=== PATIENT | male | born 1965 | race Caucasian/White ===

== ENCOUNTER 2017-10-01 14:40 | Outpatient (CLI) | payer OTHER ==
[~2017-10-01] VITALS: Ht 171.4 cm; Wt 99.1 kg
[2017-10-01] MEDS ORDERED: METF-480 PO (15:01)
[2017-10-01] MEDS ORDERED: NOVMIX SC (15:01)
[2017-10-01] MEDS ORDERED: METO-448 PO (15:01)
[2017-10-01] MEDS ORDERED: AMLO5TAB4 PO (15:01)
[2017-10-01 15:02] VITALS: Ht 171.4 cm; Wt 99.1 kg
[2017-10-01 15:03] VITALS: BP 127/85; PULSE 103; RESP 18
--- NOTE | 2017-10-01 15:22 | PN ---
Date/Time of Note Date/Time of Note DATE: 10/01/17 TIME: 15:16 Outpatient Progress Note Chief Complaint Right-sided weakness/diabetes/hypertension/neuropathy HPI Right-sided weakness/patient was recently hospitalized with right-sided weakness , patient upper and lower extremity weakness, patient also has tingling and numbness, Patient slightly unsteady on walking, patient has a cane, patient left at home, Diabetes/no polydipsia polyuria hypoglycemia, blood sugars still slightly elevated, Hypertension/no headache or dizziness, no blood in the urine, no impaired vision , Review of Systems Const: No Fever, no chills, no Wt. loss, no Fatigue, normal appetite, no diaphoresis. Eyes: No pain, no discharge, no redness, no visual change, no foreign body. ENT: No pain, no bleeding, no congestion, no sore throat, no dysphagia, no discharge or rhinitis. Lymph: No adenopathy, no tender nodes, no lymphedema. Resp: No SOB, no cough, no sputum, no wheezing, no chest pain. CV: No chest pain, no palpitaions, no BARRY, no PND, no edema. GI: Normal appetite, no pain, no nausea, no vomiting, no diarrhea, no blood, no constipation. : No frequency, no urgency, no dysuria, no hematuria, no flank pain, no discharge, no bleeding. Musc: Right-sided weakness, and numbness, no back pain, no neck pain, no knee pain, no restricted ROM. Skin: No rash, no skin lesions, no erythema, no laceration, no bruising, no pruritus. Neuro: No DUPREE, no dizziness, no syncope, no seizure, no focal-weakness. Endo: No polyuria, no polydypsia, no dry-skin, no temp-intolerance. Psych: No hallucinations, no depression, no anxiety, no suicidal ideation. Ext: No edema, no pain, no ulcer, no weakness. Right-sided weakness, and numbness, Physical Exam Vital Signs Date Time Temp Pulse Resp B/P Pulse Ox O2 Delivery O2 Flow Rate FiO2 10/01/17 15:03 98.5 103 18 127/85 97 Room Air General Appearance: A 52 year-old male who appears well-developed, well- nourished, in no acute distress. HEENT: Head normocephalic, atraumatic. Pupils equal, round, reactive to light and accommodate. Sclerae are no jaundice. Nasal turbinates pink without erythema or nasal discharge. Mucous membranes pink and moist without lesions. Oropharynx clear without any exudate or discharge. NECK: Supple. Trachea midline, No thyromegaly, No cervical lymphadenopathy, No mass, No carotid bruits, No JVD, Carotid pulses 2+ bilaterally. PULMONARY: Clear to auscultaion bilaterally, No retractions, Chest expansion symmetric bilaterally, no rales, no ronchi, no dulness on percussion. CARDIAC: Normal SI and S2, Regular rate and rythm, no murmur, gallop, or rub. GASTROINTESTINAL: Abdomen is soft, non-tender, Non Rigid, No distention, Positive bowel sounds x4 quadrants, Liver normal. SKIN: Warm, dry, no rash, no bruise, no echmosis. EXTREMITIES: Bilateral lower extremities no edema, right upper and lower extremity weakness, and numbness, no phlabitus, pulse palpable, no contracture. MUSCULOSKELETAL: Spine Normal, Non-tender, Normal range of motion, No swelling, no deformity, no clubbing, or cyanosis, the patient has no edema to bilateral lower extremities, dorsalis pedis pulses palpable bilaterally. NEUROLOGIC: The patient is awake, alert, oriented, responding to yes/no questions appropriately, moving all extremities, cranial nerve intact, normal strenght, normal power, normal coordination on left side, right side upper extremity 4 out of 5 strength and 3 out of 5 lower extremity,, slightly unsteady gait. Allergies Coded Allergies: No Known Drug Allergies (Verified Allergy, Unknown, 10/01/17) PMH TIA/diabetes/hypertension/neuropathy/rule out CVA Social Hx Former smoker, occasional marijuana, no alcohol, Family Hx Noncontributory Assessment/Plan Impression Right-sided weakness/rule out CVA Diabetes Hypertension Neuropathy Plan Patient education done about his condition and diseases, patient educated to use his cane and fall precaution, Patient encouraged to follow the primary care physician, Patient educated to control of blood sugar, education about the diet exercise and controlling the pressure and controlling the blood sugar and risk explained to the patient, I do not have results of carotid Doppler study CAT scan or MRI, if the CAT scan was negative probably patient may need an MRI because still has severe weakness in the lower extremity, Patient is going to run out of the Glucophage, Glucophage 850 3 times daily #100 Continue all other medication including aspirin, blood pressure medication, Medications Home Meds Reported Medications Metoprolol Tartrate* (Lopressor*) 25 Mg Tab, 25 MG PO BID, #60 TAB 10/01/17 Insulin Aspart (Novolog Mix (70/30)) 100 Units/Ml Soln, 15 SC WITH BREAKFAST DINNE, EA 10/01/17 Metformin* (Glucophage*) 850 Mg Tablet, 850 MG PO WITH MEALS, #90 TAB 10/01/17 Amlodipine Besylate* (Norvasc*) 5 Mg Tablet, 5 MG PO DAILY, TAB 10/01/17 BARBARA MCCARTHY MD Oct 01, 2017 15:22
== END 2017-10-01 17:00 | disposition home or self-care (01) ==
LOC: DCC 14:40
PROVIDERS: ATTEND Internal Medicine
DX: R53.1 Weakness (principal); R20.2 Paresthesia of skin; E11.9 Type 2 diabetes mellitus without complications; I10 Essential (primary) hypertension; G62.9 Polyneuropathy, unspecified; Z86.73 Personal history of transient ischemic attack (TIA), and cerebral infarction without residual deficits; Z87.891 Personal history of nicotine dependence
CPT/HCPCS: G0463

== ENCOUNTER 2017-10-16 10:54 | Outpatient (CLI) | payer OTHER ==
[~2017-10-16] VITALS: Ht 171.4 cm; Wt 99.5 kg
[~2017-10-16 10:54] MED LIST: AMLO5TAB4 PO; METF-480 PO; METO-448 PO; NOVMIX SC
[2017-10-16 11:15] VITALS: Ht 171.4 cm; Wt 99.5 kg
[2017-10-16 11:16] VITALS: BP 125/80; PULSE 66; RESP 16
--- NOTE | 2017-10-16 12:23 | PN ---
Date/Time of Note Date/Time of Note DATE: 10/16/17 TIME: 12:19 Outpatient Progress Note Chief Complaint CVA/diabetes/hypertension/ HPI CVA/patient had right-sided CVA, right-sided numbness, patient also has weakness of right upper and lower extremity, upper extremity slightly more weaker than lower, no fall, no dysphagia, Diabetes/no polydipsia polyuria hypoglycemia, Hypertension/no headache or dizziness or lightheadedness, Review of Systems Const: No Fever, no chills, no Wt. loss, no Fatigue, normal appetite, no diaphoresis. Eyes: No pain, no discharge, no redness, no visual change, no foreign body. ENT: No pain, no bleeding, no congestion, no sore throat, no dysphagia, no discharge or rhinitis. Lymph: No adenopathy, no tender nodes, no lymphedema. Resp: No SOB, no cough, no sputum, no wheezing, no chest pain. CV: No chest pain, no palpitaions, no BARRY, no PND, no edema. GI: Normal appetite, no pain, no nausea, no vomiting, no diarrhea, no blood, no constipation. : No frequency, no urgency, no dysuria, no hematuria, no flank pain, no discharge, no bleeding. Musc:no back pain, no neck pain, no knee pain, no restricted ROM. Skin: No rash, no skin lesions, no erythema, no laceration, no bruising, no pruritus. Numbness in right side of the whole body, Neuro: No DUPREE, no dizziness, no syncope, no seizure, right-sided weakness, and right-sided numbness, Endo: No polyuria, no polydypsia, no dry-skin, no temp-intolerance. Psych: No hallucinations, no depression, no anxiety, no suicidal ideation. Ext: No edema, no pain, no ulcer, no weakness. Right-sided numbness, Physical Exam Vital Signs Date Time Temp Pulse Resp B/P Pulse Ox O2 Delivery O2 Flow Rate FiO2 10/16/17 11:16 98.4 66 16 125/80 97 Room Air General Appearance: A 52 year-old male who appears well-developed, well- nourished, in no acute distress. HEENT: Head normocephalic, atraumatic. Pupils equal, round, reactive to light and accommodate. Sclerae are no jaundice. Nasal turbinates pink without erythema or nasal discharge. Mucous membranes pink and moist without lesions. Oropharynx clear without any exudate or discharge. NECK: Supple. Trachea midline, No thyromegaly, No cervical lymphadenopathy, No mass, No carotid bruits, No JVD, Carotid pulses 2+ bilaterally. PULMONARY: Clear to auscultaion bilaterally, No retractions, Chest expansion symmetric bilaterally, no rales, no ronchi, no dulness on percussion. CARDIAC: Normal SI and S2, Regular rate and rythm, no murmur, gallop, or rub. GASTROINTESTINAL: Abdomen is soft, non-tender, Non Rigid, No distention, Positive bowel sounds x4 quadrants, Liver normal. SKIN: Warm, dry, no rash, no bruise, no echmosis, right-sided numbness,. EXTREMITIES: Bilateral lower extremities normal, no edema, no phlabitus, pulse palpable, no contracture. MUSCULOSKELETAL: Spine Normal, Non-tender, Normal range of motion, No swelling, no deformity, no clubbing, or cyanosis, the patient has no edema to bilateral lower extremities, dorsalis pedis pulses palpable bilaterally. NEUROLOGIC: The patient is awake, alert, oriented, responding to yes/no questions appropriately, moving all extremities, cranial nerve intact, right- sided numbness, normal strenght, normal power, normal coordination, on the left side, on right-sided weakness, upper extremity more weaker than lower extremity , minimally unsteady gait. Allergies Coded Allergies: No Known Drug Allergies (Verified Allergy, Unknown, 10/01/17) PMH No change Social Hx No change Family Hx No change Assessment/Plan Impression CVA/diabetes/hypertension/neuropathy Plan Patient education done about diabetes hypertension and CVA, Watch and monitor for seizure, Increase activity, fall precaution, Patient to follow with a primary care physician, control the blood pressure blood sugar, Patient has enough medication, Medications Home Meds Reported Medications Metoprolol Tartrate* (Lopressor*) 25 Mg Tab, 25 MG PO BID, #60 TAB 10/01/17 Insulin Aspart (Novolog Mix (70/30)) 100 Units/Ml Soln, 15 SC WITH BREAKFAST DINNE, EA 10/01/17 Metformin* (Glucophage*) 850 Mg Tablet, 850 MG PO WITH MEALS, #90 TAB 10/01/17 Amlodipine Besylate* (Norvasc*) 5 Mg Tablet, 5 MG PO DAILY, TAB 10/01/17 BARBARA MCCARTHY MD Oct 16, 2017 12:23
== END 2017-10-16 17:00 | disposition home or self-care (01) ==
LOC: DCC 10:54
PROVIDERS: ATTEND Internal Medicine
DX: I63.9 Cerebral infarction, unspecified (principal); E11.9 Type 2 diabetes mellitus without complications; I10 Essential (primary) hypertension; G62.9 Polyneuropathy, unspecified
CPT/HCPCS: G0463